=== PATIENT | female | born 2000 | race Hispanic/Latino ===

== ENCOUNTER 2024-07-19 08:28 | Emergency (ER) | payer SELFPAY ==
[2024-07-19] MEDS ORDERED: hydrOXYzine 25 MG TAB ONE (08:44)
[2024-07-19] MEDS ORDERED: Ibuprofen 200 MG TAB ONE (08:44)
== END 2024-07-19 09:26 | disposition home or self-care (01) ==
LOC: CSHERS 08:28 → EDBD 08:28 → CSHERS 09:26
DX: M25.561 Pain in right knee (principal)
CPT/HCPCS: 99283